=== PATIENT | female | born 1995 | race Caucasian/White ===

== ENCOUNTER 2017-08-09 09:40 | Emergency (ER) | payer OTHER ==
[~2017-08-09] VITALS: Ht 170.2 cm; Wt 110.7 kg
[~2017-08-09 09:40] MED LIST: ALBU90OI INH; Amoxicillin875 MG PO; Depo-Testo100 MG/1 M IM; Naprosyn500 MG PO; PRODEXEL PO; Veetids 500500 MG PO; Zithromax250 MG PO
[2017-08-09] MEDS ORDERED: BENZ100A PO (10:13)
== END 2017-08-09 10:18 | disposition home or self-care (01) ==
LOC: ER 09:40
DX: J06.9 Acute upper respiratory infection, unspecified (principal); Z88.5 Allergy status to narcotic agent; Z88.8 Allergy status to other drugs, medicaments and biological substances; Z87.891 Personal history of nicotine dependence
CPT/HCPCS: 99282

== ENCOUNTER 2017-10-23 17:27 | Emergency (ER) | payer OTHER ==
[~2017-10-23] VITALS: Ht 167.6 cm; Wt 113.4 kg
[~2017-10-23 17:27] MED LIST changes: +BENZ100A PO
== END 2017-10-23 19:23 | disposition home or self-care (01) ==
LOC: ER 17:27
DX: S61.210A Laceration without foreign body of right index finger without damage to nail, initial encounter (principal); W45.8XXA Other foreign body or object entering through skin, initial encounter; Y99.0 Civilian activity done for income or pay; Z88.8 Allergy status to other drugs, medicaments and biological substances; Z79.899 Other long term (current) drug therapy; Z87.891 Personal history of nicotine dependence
CPT/HCPCS: 12001; 99283

== ENCOUNTER 2018-10-12 14:39 | Emergency (ER) | payer OTHER ==
[~2018-10-12] VITALS: Ht 167.6 cm; Wt 108.9 kg
[~2018-10-12 14:39] MED LIST changes: +Augmentin 875-1 EACH PO
[2018-10-12] MEDS ORDERED: DEXT30SU PO (15:42)
[2018-10-12] MEDS ORDERED: NAPR500EC PO (15:42)
== END 2018-10-12 15:44 | disposition home or self-care (01) ==
LOC: ER 14:39
DX: M94.0 Chondrocostal junction syndrome [Tietze] (principal); Z88.8 Allergy status to other drugs, medicaments and biological substances; Z79.899 Other long term (current) drug therapy; F17.200 Nicotine dependence, unspecified, uncomplicated
CPT/HCPCS: 71046; 99283-25

== ENCOUNTER 2019-04-19 17:23 | Emergency (ER) | payer OTHER ==
[~2019-04-19] VITALS: Ht 167.6 cm; Wt 113.4 kg
[~2019-04-19 17:23] MED LIST changes: +DEXT30SU PO; +NAPR500EC PO
[2019-04-19] MEDS ORDERED: Depo-Testos200 MG/ML IM (20:13)
[2019-04-19] MEDS ORDERED: IBUP400 PO (20:14)
== END 2019-04-19 20:38 | disposition home or self-care (01) ==
LOC: ER 17:23
DX: M25.512 Pain in left shoulder (principal); Z88.8 Allergy status to other drugs, medicaments and biological substances; F17.200 Nicotine dependence, unspecified, uncomplicated; X50.0XXA Overexertion from strenuous movement or load, initial encounter
CPT/HCPCS: 73030; 99283-25

== ENCOUNTER 2020-04-23 23:44 | Emergency (ER) | payer OTHER ==
[~2020-04-23] VITALS: Ht 172.7 cm; Wt 113.4 kg
[~2020-04-23 23:44] MED LIST changes: +Depo-Testos200 MG/ML IM; +IBUP400 PO
== END 2020-04-24 00:59 | disposition home or self-care (01) ==
LOC: ER 23:44
DX: S05.01XA Injury of conjunctiva and corneal abrasion without foreign body, right eye, initial encounter (principal); F17.200 Nicotine dependence, unspecified, uncomplicated; Z88.5 Allergy status to narcotic agent; Z88.8 Allergy status to other drugs, medicaments and biological substances; X58.XXXA Exposure to other specified factors, initial encounter; Y93.89 Activity, other specified
CPT/HCPCS: 99283-25; A9270

== ENCOUNTER 2020-10-13 01:44 | Emergency (ER) | payer OTHER ==
[~2020-10-13] VITALS: Ht 167.6 cm; Wt 113.4 kg
[2020-10-13] MEDS ORDERED: CEPH500 PO (02:30)
== END 2020-10-13 02:30 | disposition home or self-care (01) ==
LOC: ER 01:44
DX: S20.461A Insect bite (nonvenomous) of right back wall of thorax, initial encounter (principal); F17.200 Nicotine dependence, unspecified, uncomplicated; Z88.6 Allergy status to analgesic agent; Z79.899 Other long term (current) drug therapy; W57.XXXA Bitten or stung by nonvenomous insect and other nonvenomous arthropods, initial encounter
CPT/HCPCS: 99282